=== PATIENT | male | born 1965 | race Caucasian/White ===

== ENCOUNTER 2024-02-22 05:50 | Emergency (ER) | payer OTHER ==
[~2024-02-22] VITALS: Ht 162.6 cm; Wt 62.9 kg
[2024-02-22 06:00] VITALS: BP_DIAS 84
[2024-02-22 07:48] VITALS: BP_SYST 117; PULSE 73; RESP 12; TEMP 97.9; O2SAT 98
== END 2024-02-22 08:39 | disposition home or self-care (01) ==
LOC: ER 05:55
DX: S05.92XA Unspecified injury of left eye and orbit, initial encounter (principal); W25.XXXA Contact with sharp glass, initial encounter; Y93.89 Activity, other specified; Y92.89 Other specified places as the place of occurrence of the external cause; Y99.0 Civilian activity done for income or pay